=== PATIENT | female | born 1995 | race Hispanic/Latino ===

== ENCOUNTER 2023-04-12 09:21 | Emergency (ER) | payer OTHER ==
[~2023-04-12] VITALS: Ht 160 cm; Wt 98.9 kg
[2023-04-12 09:29] VITALS: BP 147/93; RESP 18
[2023-04-12] MEDS ORDERED: IBUPROFEN 600 MG TABLET PO ONE (10:30)
[2023-04-12] MEDS ORDERED: DEXAMETHASONE SOD PHOSPHATE 4 MG/ML 1ML VIAL IM ONE (10:30)
[2023-04-12] MEDS ORDERED: IPRATROPIUM/ALBUTEROL SULFATE 3 ML SOLUTION IH ONE (10:30)
[2023-04-12 10:42] VITALS: PULSE 81
[2023-04-12 12:37] LABS: RAPID GROUP A STREP negative (NEGATIVE)
[2023-04-12 12:45] LABS: INFLUENZA TYPE A Negative For Type A (NEGATIVE); INFLUENZA TYPE B Negative For Type B (NEGATIVE)
[2023-04-12 12:54] LABS: SARS-CoV-2, RNA, NAAT POSITIVE SARS CoV-2 (NEGATIVE)
[2023-04-12] MEDS ORDERED: FLUT16H NASAL (13:11)
[2023-04-12] MEDS ORDERED: ALBU18HF7 IH (13:11)
[2023-04-12] MEDS ORDERED: BROM118S48 PO (13:11)
== END 2023-04-12 13:22 | disposition home or self-care (01) ==
LOC: EDH 09:21
DX: U07.1 COVID-19 (principal); R07.0 Pain in throat; R06.02 Shortness of breath; J45.909 Unspecified asthma, uncomplicated; F41.9 Anxiety disorder, unspecified
CPT/HCPCS: 99284; 71045; 87635; 87880; 87804 ×2; 96372; 94640; J1100; C9803